=== PATIENT | male | born 1940 | race Hispanic/Latino ===

== ENCOUNTER 2020-07-19 21:25 | Observation (INO) | payer MEDICARE ==
[~2020-07-19] VITALS: Ht 172.7 cm; Wt 70.8 kg
[2020-07-19 22:07] LABS: BASOPHILS % (AUTO) 1.4 % (0.0-5.0); EOSINOPHILS % (AUTO) 1.2 % (0.0-8.0); HEMATOCRIT 40.5 % (42-54); LYMPHOCYTES % (AUTO) 8.6 % (21.0-51.0); MEAN CORPUSCULAR HEMOGLOBIN 30.3 pg (27.0-33.0); MEAN CORPUSCULAR HGB CONC 33.1 g/dL (32.0-36.0); MEAN CORPUSCULAR VOLUME 91.6 fL (79-99); MONOCYTES % (AUTO) 8.2 % (3.0-13.0); NEUTROPHILS % (AUTO) 80.1 % (40.0-77.0); PLATELET COUNT (AUTO) 166 K/uL (130-400); RED BLOOD CELL COUNT(AUTO) 4.42 MIL/uL (4.50-6.20); WHITE BLOOD COUNT (AUTO) 8.6 K/uL (4.8-10.8)
[2020-07-19 22:20] LABS: CREATININE 0.3 mg/dL (0.5-1.5); INR 1.1 (0.85-1.15); POTASSIUM 3.6 mmol/L (3.5-5.1); PROTHROMBIN TIME 11.9 SEC (9.6-11.6)
[2020-07-19] MEDS ORDERED: ONDANSETRON HCL 4 MG/2 ML VIAL ONE (22:20)
[2020-07-19] MEDS ORDERED: MORPHINE SULFATE 2 MG/ML 1ML SYG ONE (22:20)
[2020-07-19 22:21] LABS: PARTIAL THROMBOPLASTIN TIME 26.4 SEC (26.3-35.5)
[2020-07-19] MEDS ORDERED: TETANUS/DIPHTHERIA TOXOID [ADULT] 0.5 ML VIAL IM ONE (22:21)
[2020-07-19 22:29] LABS: ALBUMIN 3.2 g/dL (3.5-5.0); BILIRUBIN,TOTAL 0.6 mg/dL (0.2-1.0); TOTAL PROTEIN, SERUM 5.8 g/dL (6.0-8.3)
[2020-07-19] MEDS ORDERED: OCTYL 2-CYANOACRYLATE 1 EACH TP ONE (23:56)
[2020-07-20] MEDS ORDERED: LACTATED RINGERS 1000ML 1,000 ML IV SCH (01:45)
[2020-07-20] MEDS ORDERED: ACETAMINOPHEN 325 MG TAB PO PRN ×2 (01:45)
[2020-07-20] MEDS ORDERED: DIPHENHYDRAMINE HCL 25 MG CAPSULE PO PRN (01:45)
[2020-07-20] MEDS ORDERED: NITROGLYCERIN 0.4 MG SL TAB SL PRN (01:45)
[2020-07-20] MEDS ORDERED: ONDANSETRON HCL 4 MG/2 ML VIAL IV PRN (01:45)
[2020-07-20] MEDS ORDERED: LACTULOSE 20 GM/30 ML UDCUP PO PRN (01:45)
[2020-07-20] MEDS ORDERED: MAG HYDROX/AL HYDROX/SIMETH ES 30 ML SUSP UDCUP PO PRN (01:45)
[2020-07-20] MEDS ORDERED: GUAIFENESIN-DM 200/20 MG 10 ML PO PRN (01:45)
[2020-07-20] MEDS ORDERED: DiphenhydrAMINE HCL 50 MG/ML VIAL IV PRN (01:45)
[2020-07-20 02:45] VITALS: BP 111/69
[2020-07-20] MEDS ORDERED: AEC81 PO (03:58)
[2020-07-20] MEDS ORDERED: PRAV40TA3 PO (03:58)
[2020-07-20] MEDS ORDERED: FINA5TAB41 PO (03:58)
[2020-07-20] MEDS ORDERED: ERGO500014 PO (04:01)
[2020-07-20] MEDS ORDERED: ARIP15TA7 PO (04:01)
[2020-07-20] MEDS ORDERED: LORA10TA7 PO (04:01)
[2020-07-20] MEDS ORDERED: TAMS-1 PO (04:02)
[2020-07-20] MEDS ORDERED: QUET300T18 PO (04:02)
[2020-07-20 07:44] VITALS: BP 101/59
[2020-07-20 08:44] LABS: THYROID STIMULATING HORMONE 1.08 uIU/mL (0.36-3.74)
[2020-07-20] MEDS: FAMOTIDINE 20MG TAB 20 MG TAB PO SCH ×2 (08:59→21:49)
[2020-07-20] MEDS: LACTULOSE 20 GM/30 ML UDCUP PO SCH ×2 (08:59→21:49)
[2020-07-20] MEDS: HEPARIN SODIUM 5000UNIT/ML 1ML VIAL SQ SCH ×2 (09:04→21:50)
[2020-07-20 11:34] VITALS: BP 105/65
[2020-07-20 12:03] LABS: ALBUMIN 3.2 g/dL (3.5-5.0); BILIRUBIN,TOTAL 1.1 mg/dL (0.2-1.0); MAGNESIUM 1.9 mg/dL (1.80-2.40); POTASSIUM 3.8 mmol/L (3.5-5.1); TOTAL PROTEIN, SERUM 5.7 g/dL (6.0-8.3)
[2020-07-20] MEDS: THIAMINE HCL 100 MG/ML 2ML VIAL IVP SCH (12:24)
[2020-07-20] MEDS: FOLIC ACID 5 MG/ML 10 ML VIAL IV SCH (12:29)
[2020-07-20 16:54] VITALS: BP 98/67
[2020-07-20 19:54] VITALS: BP 104/58
[2020-07-20 23:55] VITALS: BP 113/62
[2020-07-21 04:55] VITALS: BP 110/68
[2020-07-21 05:09] LABS: BASOPHILS % (AUTO) 1.6 % (0.0-5.0); EOSINOPHILS % (AUTO) 2.8 % (0.0-8.0); HEMATOCRIT 39.3 % (42-54); LYMPHOCYTES % (AUTO) 25.3 % (21.0-51.0); MEAN CORPUSCULAR HEMOGLOBIN 30.2 pg (27.0-33.0); MEAN CORPUSCULAR HGB CONC 33.1 g/dL (32.0-36.0); MEAN CORPUSCULAR VOLUME 91.4 fL (79-99); MONOCYTES % (AUTO) 10.1 % (3.0-13.0); NEUTROPHILS % (AUTO) 59.7 % (40.0-77.0); PLATELET COUNT (AUTO) 156 K/uL (130-400); RED CELL DISTRIBUTION WIDTH 13.1 % (11.0-15.5); WHITE BLOOD COUNT (AUTO) 5.8 K/uL (4.8-10.8)
[2020-07-21 05:31] LABS: ALBUMIN 3.1 g/dL (3.5-5.0); BILIRUBIN,TOTAL 1.2 mg/dL (0.2-1.0); CREATININE 0.9 mg/dL (0.5-1.5); TOTAL PROTEIN, SERUM 5.9 g/dL (6.0-8.3)
[2020-07-21 08:12] VITALS: BP 102/61
[2020-07-21] MEDS: FAMOTIDINE 20MG TAB 20 MG TAB PO SCH ×2 (08:27→21:04)
[2020-07-21] MEDS: LACTULOSE 20 GM/30 ML UDCUP PO SCH ×2 (08:27→21:04)
[2020-07-21] MEDS: THIAMINE HCL 100 MG/ML 2ML VIAL IVP SCH (08:27)
[2020-07-21] MEDS: HEPARIN SODIUM 5000UNIT/ML 1ML VIAL SQ SCH ×2 (08:33→21:11)
[2020-07-21] MEDS ORDERED: FOLIC ACID 5 MG/ML 10 ML VIAL IV SCH (09:00)
[2020-07-21] MEDS ORDERED: THIAMINE HCL 100 MG/ML 2ML VIAL IVP SCH (09:00)
[2020-07-21] MEDS: FOLIC ACID 5 MG/ML 10 ML VIAL IV SCH (10:47)
[2020-07-21 11:30] VITALS: BP 101/59
[2020-07-21 16:29] VITALS: BP 101/62
[2020-07-21 20:37] VITALS: BP 107/57
[2020-07-22 01:38] VITALS: BP 98/54
[2020-07-22 04:15] LABS: BASOPHILS % (AUTO) 1.4 % (0.0-5.0); EOSINOPHILS % (AUTO) 1.2 % (0.0-8.0); HEMATOCRIT 40.8 % (42-54); LYMPHOCYTES % (AUTO) 15.8 % (21.0-51.0); MEAN CORPUSCULAR HEMOGLOBIN 30.5 pg (27.0-33.0); MEAN CORPUSCULAR HGB CONC 33.8 g/dL (32.0-36.0); MEAN CORPUSCULAR VOLUME 90.1 fL (79-99); MONOCYTES % (AUTO) 9.8 % (3.0-13.0); NEUTROPHILS % (AUTO) 71.2 % (40.0-77.0); PLATELET COUNT (AUTO) 183 K/uL (130-400); RED BLOOD CELL COUNT(AUTO) 4.53 MIL/uL (4.50-6.20); RED CELL DISTRIBUTION WIDTH 12.9 % (11.0-15.5); WHITE BLOOD COUNT (AUTO) 6.6 K/uL (4.8-10.8)
[2020-07-22 04:36] LABS: ALBUMIN 3.3 g/dL (3.5-5.0); BILIRUBIN,TOTAL 1.1 mg/dL (0.2-1.0); CREATININE 0.9 mg/dL (0.5-1.5); POTASSIUM 3.7 mmol/L (3.5-5.1); TOTAL PROTEIN, SERUM 6.4 g/dL (6.0-8.3)
[2020-07-22 05:00] VITALS: BP 111/60
[2020-07-22 07:30] VITALS: BP 108/60
[2020-07-22] MEDS: LACTULOSE 20 GM/30 ML UDCUP PO SCH (08:35)
[2020-07-22] MEDS: FAMOTIDINE 20MG TAB 20 MG TAB PO SCH (08:35)
[2020-07-22] MEDS: THIAMINE HCL 100 MG/ML 2ML VIAL IVP SCH (08:35)
[2020-07-22] MEDS: HEPARIN SODIUM 5000UNIT/ML 1ML VIAL SQ SCH (08:36)
[2020-07-22] MEDS: FOLIC ACID 5 MG/ML 10 ML VIAL IV SCH (10:05)
[2020-07-22 11:00] VITALS: BP 107/61
== END 2020-07-22 17:45 ==
LOC: EDH 21:25 → INTOOBSV 07-20 01:39 → EDHIP 07-20 01:39 → 3CH 07-20 02:31
PROVIDERS: ADMIT Family Medicine; ATTEND Family Medicine
DX: K40.90 Unilateral inguinal hernia, without obstruction or gangrene, not specified as recurrent (principal); Z20.822 Contact with and (suspected) exposure to COVID-19; S61.412A Laceration without foreign body of left hand, initial encounter; S80.212A Abrasion, left knee, initial encounter; E44.0 Moderate protein-calorie malnutrition; I10 Essential (primary) hypertension; E78.5 Hyperlipidemia, unspecified; N40.0 Benign prostatic hyperplasia without lower urinary tract symptoms; F03.90 Unspecified dementia, unspecified severity, without behavioral disturbance, psychotic disturbance, mood disturbance, and anxiety; Z23 Encounter for immunization; Z79.82 Long term (current) use of aspirin; Z79.899 Other long term (current) drug therapy; W18.39XA Other fall on same level, initial encounter; Y93.89 Activity, other specified; Y92.009 Unspecified place in unspecified non-institutional (private) residence as the place of occurrence of the external cause
CPT/HCPCS: 12002; 36415 ×4; 70450; 71045; 72125; 73130; 73521; 73552; 73562; 73590; 74176; 80053 ×4; 82550; 82948; 83735; 83880; 84443; 84484; 85025 ×3; 85610; 85730; 87426; 90471; 90714; 92610; 93005; 96372 ×3; 96374; 96375; 96376 ×2; 97039 ×2; 97161; 97530; 99285; G0378 ×63; G8981; G8982; G8983; J1644 ×5; J2405; J3411 ×3; J3490 ×3; U0003